=== PATIENT | female | born 2000 | race Caucasian/White ===

== ENCOUNTER 2021-11-29 17:17 | Emergency (ER) | payer OTHER ==
[~2021-11-29] VITALS: Ht 152.4 cm; Wt 87.5 kg
[2021-11-29] MEDS ORDERED: KETOROLAC TROMETHAMINE 30 MG/ML VIAL IM ONE (18:30)
[2021-11-29 18:33] LABS: CLARITY,URINE CLEAR (CLEAR); COLOR,URINE YELLOW (YELLOW); KETONES,URINE NEGATIVE (NEGATIVE); LEUKOCYTE ESTERASE ,URINE NEGATIVE (NEGATIVE); NITRITE,URINE NEGATIVE (NEGATIVE); PROTEIN,URINE DIPSTICK NEGATIVE (NEGATIVE); URINE UROBILINOGEN 0.2 mg/dL (0.2 - 1)
[2021-11-29] MEDS ORDERED: KETOROLAC TROMETHAMINE 60 MG/2 ML VIAL ONE (18:41)
[2021-11-29 18:48] LABS: BACTERIA,URINE MODERATE /HPF; EPITHELIAL CELLS,URINE FEW /LPF
[2021-11-29] MEDS ORDERED: Morphine 4mg INJECTION 4 MG/ML INJ IM STA (20:25)
[2021-11-29] MEDS ORDERED: ULTRAM 50MG50 MG PO (21:01)
== END 2021-11-29 21:11 | disposition home or self-care (01) ==
LOC: ER 17:27
DX: R10.2 Pelvic and perineal pain (principal); F32.A Depression, unspecified
CPT/HCPCS: 36415; 76830; 76856; 81001; 81025; 84702; 99284; J1885 ×2